=== PATIENT | female | born 1985 | race Caucasian/White ===

== ENCOUNTER 2022-05-21 12:04 | Emergency (ER) | payer MEDICAID, SELFPAY ==
[2022-05-21 12:04] VITALS: BP 126/96; PULSE 94; RESP 18; TEMP 36.6; O2SAT 97; BMI 26.4
[2022-05-21 12:49] LABS: Mucous, Urine 0 SEEN /hpf (<or=2+); Red Blood Cells-Urine 0 SEEN /hpf (0-5); Squamous Epithelial Cells - UA 0 SEEN /hpf (5-10)
[2022-05-21 12:59] LABS: Color, Urine Yellow (Yellow); Glucose, Dipstick Normal (Normal); Ketone-Dipstick Negative (Negative); Leukocyte Esterase-Dipstick Negative /ul (Negative); Nitrite-Dipstick Negative (Negative); Occult Blood-Urine 250 /ul (Negative); Protein-Dipstick 100 mg/dl (Negative); Specific Gravity, Urine 1.015 (1.002-1.030); Urine Bilirubin Dipstick Negative (Negative); Urine Clarity Clear (Clear); Urine Urobilinogen Normal (Normal)
[2022-05-21 13:09] LABS: Basophil# 0.03 X10^3/uL; Basophil% 0.3 % (0-1); Eosinophil# 0.09 X10^3/uL; Hematocrit 43.3 % (37-47); Hemoglobin 15.1 g/dL (12.0-15.0); Lymphocyte % 28.9 % (19-41); Mean Corp Hgb Conc 34.9 g/dL (32-36); Mean Corpuscular Hgb 31.4 pg (27.0-32.0); Mean Platelet Vol. 10.4 fl (6.2-12.0); Monocyte# 0.55 X10^3/uL; Monocyte% 5.9 % (0-10); NRBC Flagged by Analyzer 0 % (0-5); Neutrophil # 5.95 X10^3/uL (2.7-7.7); Neutrophil % 63.7 % (47-70); Platelet Count 238 K/mm3 (150-450); RBC Distribution Width CV 12.4 % (11.6-14.6); Red Blood Count 4.81 M/mm3 (4.2-5.4); White Blood Count 9.3 K/mm3 (4.4-11.0)
--- NOTE | 2022-05-21 13:10 | CT_ITS ---
STUDY: CT ABDOMEN AND PELVIS WITHOUT CONTRAST REASON FOR EXAM: Female, 36 years old. Right-sided flank pain. History of kidney stones. RADIATION DOSAGE (If Supplied By Facility): CTDIvol = ( 6.99 ) mGy, DLP = ( 337.29 ) mGycm TECHNIQUE: Transaxial images were obtained from the dome of the diaphragm to the symphysis pubis without oral contrast, and without intravenous contrast. Sagittal and coronal images were reconstructed. Individualized dose optimization techniques were used for this CT. COMPARISON: None. FINDINGS: The visualized lung bases are unremarkable. The visualized portions of the heart are within normal limits. Normal liver. There are surgical clips in the gallbladder fossa consistent with a prior cholecystectomy. Normal spleen. Normal pancreas. Normal bilateral adrenal glands. Punctate calculus in the lower pole calyx of the right kidney. Normal left kidney. There is a small hiatal hernia. Normal small intestine. Normal colon. There are surgical clips in the region of the appendix consistent with a prior appendectomy. Normal abdominal aorta. Normal inferior vena cava. There is borderline retroperitoneal lymphadenopathy with enlarged nodes no greater than 10mm in the short axis diameter. Normal urinary bladder. There is a dominant follicle in the right ovary measuring 1.7 cm. Normal abdominal wall. Normal osseous structures. CT/Abdomen/Pelvis without Cont IMPRESSION: Status post appendectomy and cholecystectomy. Tiny calculus in the lower pole calyx of the right kidney. Electronically Signed: Bridger Cueto MD at 14:02 EDT ,
--- NOTE | 2022-05-21 13:11 | EDS_ITS ---
HPI HPI - Female History of Present Illness Chief Complaint: Flank Pain Narrative Narrative: 36-year-old female presenting with left flank pain, nausea, dysuria. She has a history of kidney stones. She states she sees a specialist in [place]. She is to go to every 6 months. She is visiting family here in [place] and was brought to the ED here for evaluation. She states it feels like a kidney stone. It radiates around to the left inguinal area. No diarrhea constipation. No vaginal complaints. No fever or chills. PFSH PFSH Home Medications NK 05/21/22 [History Last Taken Unknown] Allergy/AdvReac Type Severity Reaction Status Date / Time ketorolac [From Toradol] Allergy Hives Verified 05/21/22 12:06 NSAIDS (Non-Steroidal Allergy Hives Verified 05/21/22 12:06 Anti-Inflamma Social History Smoking Status: Current some day smoker tobacco type: cigarettes ROS ROS ED Constitutional Constitutional ED: Denies chills, fever(s) or sweats Eyes Eyes: Denies blurry vision or change in vision ENT ENT ED: Denies ear pain or sore throat Cardiovascular Cardiovascular: Denies chest pain, palpitations or racing heartbeat Respiratory/Chest Respiratory/Chest: Denies cough, dyspnea or sputum Gastrointestinal Gastrointestinal: Reports abdominal pain and nausea; Denies constipation, diarrhea or vomiting Genitourinary Genitourinary ED: Reports dysuria; Denies urinary frequency Musculoskeletal Musculoskeletal: Denies arthralgias, myalgias or neck pain Integumentary Denies abscess, Abrasions or rash Neurologic Neurologic: Denies headache(s), paresthesias or weakness Psychiatric Psychiatric: Denies anxiety, depression, suicidal ideation or suicidal thoughts Endocrine Endocrinology: Denies polydipsia or polyuria EXAM Physical Exam Const Vital Signs: 05/21/22 12:04 05/21/22 12:55 Temperature 97.9 F Temperature Source Temporal Pulse Rate 94 Respiratory Rate 18 Respiratory Effort Normal Non-Labored Respiratory Pattern Normal Blood Pressure 126/96 H Blood Pressure Mean 106 Pulse Ox 97 Oxygen Delivery Method Room Air Positive well nourished General Appearance ED: NAD HEENT Reports moist mucous membranes Eyes PERRL and EOMs intact bilaterally General Eye ED: Negative for pale conjunctiva Resp normal respiratory effort and clear to auscultation bilaterally Cardio regular rate and regular rhythm GI soft to palpation GI Narrative: Mild tenderness in the left lower quadrant Palpation: Negative for guarding or rigid Back/Spine General Back: CVA tenderness left Neuro oriented x3 and CN's II-XII intact bilaterally Sensorium / Orientation: alert Psych mental status grossly normal Skin no rashes or lesions noted MDM MDM MDM Narrative Medical decision making narrative: Patient medicated with morphine and Zofran as she has allergy to Toradol. Urinalysis shows occult blood. CBC shows no leukocytosis and her hemoglobin hematocrit are normal. CBC and BMP are unremarkable. CT of the abdomen pelvis without contrast was obtained to rule out kidney stone the radiologist interprets this is a tiny calculus within the right kidney. There is no pain in the side. I suspect she likely passed a kidney stone given her history. Patient counseled on findings. I do not believe the patient needs narcotics for home. I instructed her to take Tylenol due to her allergy to Toradol and ibuprofen. Impression: 1. Hematuria 2. Left flank pain 3. Likely passed kidney Lab Data Attestation: I reviewed the patient's lab results. Labs: Laboratory Results - last 24 hr 05/21/22 05/21/22 05/21/22 12:45 12:53 12:53 WBC 9.3 RBC 4.81 Hgb 15.1 H Hct 43.3 MCV 90.0 MCH 31.4 MCHC 34.9 RDW Std Deviation 41.0 RDW Coeff of Carla 12.4 Plt Count 238 MPV 10.4 Immature Gran % (Auto) 0.200 Neut % (Auto) 63.7 Lymph % (Auto) 28.9 [place] % (Auto) 5.9 Eos % (Auto) 1.0 Baso % (Auto) 0.3 Absolute Neuts (auto) 6.0 Absolute Lymphs (auto) 2.70 Nucleated RBC % 0 Sodium 140 Potassium 4.1 Chloride 111 H Carbon Dioxide 25.0 Anion Gap 4 L BUN 12 Creatinine 0.70 Estim Creat Clear Calc 82.23 Est GFR (MDRD) Af Amer 119 Est GFR (MDRD) Non-Af 99 BUN/Creatinine Ratio 17.1 Glucose 90 Calcium 9.1 Urine Color Yellow Urine Clarity Clear Urine pH 6.0 Ur Specific [place] 1.015 Urine Protein 100 H Urine Glucose (UA) Normal Urine Ketones Negative Urine Occult Blood 250 H Urine Nitrite Negative Urine Bilirubin Negative Urine Urobilinogen Normal Ur Leukocyte Esterase Negative Urine RBC 0 SEEN Urine WBC 5-10 SEEN Ur Squamous Epith Cells 0 SEEN Urine Bacteria 1+ Urine Mucus 0 SEEN Urine Test Negative Radiography Diagnostic Testing: Clinical Impression(s) from Imaging Studies Abdomen/Pelvis CT 05/21/22 13:10 IMPRESSION: Status post appendectomy and cholecystectomy. Tiny calculus in the lower pole calyx of the right kidney. Electronically Signed: Bridger Cueto MD at 14:02 EDT , Discharge Plan Triage Chief Complaint: Flank Pain ED Provider: Hari Marti Dx/Rx/DC Orders Prescriptions: No Action NK Primary Care Provider: SELVIN LEAL Referrals: NOT,DEFINED [Non-Staff] -
[2022-05-21 13:15] LABS: White Blood Cells 5-10 SEEN /hpf (0-5)
[2022-05-21 13:16] LABS: Bacteria 1+ /hpf (None Seen); Internal QC Validated? YES +Cl - CLEAR BKGD; Pregnancy, Urine Negative Negative
[2022-05-21] MEDS: Ondansetron 4 MG/2 ML Vial IV (13:16)
[2022-05-21] MEDS: Morphine 4 MG/ML Syringe IV (13:16)
[2022-05-21 13:22] LABS: Anion Gap 4 (5-15); BUN 12 mg/dL (7-18); BUN/Creat Ratio 17.1 RATIO (10-20); Calcium,Total 9.1 mg/dL (8.5-10.1); Chloride 111 mmol/L (98-107); EST Glomerular Filtration Rate 99 mL/min (>60); Est Glom Filt Rate - Afr Amer 119 mL/min (>60); Estimated Creatinine Clearance 82.23 ml/min; Glucose 90 mg/dL (74-106); Potassium 4.1 mmol/L (3.5-5.1); Sodium Level 140 mmol/L (136-145)
== END 2022-05-21 15:10 | disposition home or self-care (01) ==
PROVIDERS: Emergency Provider Student in an Organized Health Care Education/Training Program; Visit Provider Student in an Organized Health Care Education/Training Program
DX: N20.0 Calculus of kidney (principal); R10.9 Unspecified abdominal pain; F17.210 Nicotine dependence, cigarettes, uncomplicated; R11.0 Nausea; R31.9 Hematuria, unspecified; R30.0 Dysuria; Z90.49 Acquired absence of other specified parts of digestive tract
CPT/HCPCS: 74176; 80048; 81001; 81025; 85025; 99283; A4216; J2405

== ENCOUNTER 2022-09-05 08:39 | Emergency (ER) | payer MEDICAID, SELFPAY ==
[2022-09-05 08:40] VITALS: BP 158/109; PULSE 93; RESP 15; TEMP 36.1; O2SAT 97; BMI 24.7
[2022-09-05 08:52] VITALS: BP 158/109; PULSE 93; RESP 16; TEMP 36.1; O2SAT 97
[2022-09-05 09:03] LABS: Mucous, Urine 0 SEEN /hpf (<or=2+); White Blood Cells 0 SEEN /hpf (0-5)
--- NOTE | 2022-09-05 09:05 | ED.VIS.GI ---
HPI HPI - GI History of Present Illness Chief Complaint: Flank Pain Narrative Narrative: 37-year-old female presenting with left flank pain, left lower quadrant pain, nausea. She has history of UTI, pyelonephritis, diverticulitis, kidney stones. She states the onset of her pain was Thursday. She describes it as aching. She describes it is progressively getting worse. She states that she does not have any urinary symptoms but typically if she had a UTI she would not get dysuria. She states she does have hot and cold flashes but has not had a fever. She has not had diarrhea or constipation. No vaginal complaints. PFSH PFS Medical History FH: cholecystectomy Kidney stone Home Medications ondansetron 4 mg disintegrating tablet 4 mg PO Q8H PRN nausea and vomiting #10 tabs 05/21/22 [Rx Last Taken Unknown] esomeprazole magnesium 40 mg capsule,delayed release (Nexium) 40 mg PO DAILY 09/05/22 [History Last Taken Unknown] ondansetron 4 mg disintegrating tablet 4 mg PO Q8H PRN nausea and vomiting #10 tabs 09/05/22 [Rx Last Taken Unknown] sumatriptan succinate 50 mg tablet 50 mg PO PRN PRN Headache 09/05/22 [History Last Taken Unknown] Allergy/AdvReac Type Severity Reaction Status Date / Time ketorolac [From Toradol] Allergy Hives Verified 09/05/22 08:42 NSAIDS (Non-Steroidal Allergy Hives Verified 09/05/22 08:42 Anti-Inflamma Surgical History Hx of appendectomy S/P partial hysterectomy Social History Smoking Status: Current some day smoker tobacco type: cigarettes ROS ROS ED Constitutional Constitutional ED: Reports chills and sweats ENT ENT ED: Denies rhinorrhea or sore throat Cardiovascular Cardiovascular: Denies chest pain or palpitations Respiratory/Chest Respiratory/Chest: Denies cough or dyspnea Gastrointestinal Gastrointestinal: Reports abdominal pain and nausea; Denies constipation, diarrhea or vomiting Genitourinary Genitourinary ED: Denies dysuria, hematuria or urinary frequency Musculoskeletal Musculoskeletal: Reports back pain; Denies arthralgias Integumentary Denies abscess or Abrasions Neurologic Neurologic: Denies headache(s) or paresthesias Psychiatric Psychiatric: Denies anxiety or depression Endocrine Endocrinology: Denies polydipsia or polyphagia EXAM Physical Exam Const Vital Signs: 09/05/22 08:40 09/05/22 08:49 09/05/22 08:52 Temperature 97 F L 97.0 F L Temperature Source Temporal Temporal Pulse Rate 93 93 Respiratory Rate 15 16 Respiratory Pattern Normal Blood Pressure 158/109 H 158/109 H Blood Pressure Mean 125 125 Pulse Ox 97 97 Oxygen Delivery Method Room Air Room Air Positive well nourished General Appearance ED: NAD; Negative for pallor HEENT Reports moist mucous membranes Eyes PERRL and EOMs intact bilaterally Neck no lymphadenopathy Resp normal respiratory effort and clear to auscultation bilaterally Auscultation: Negative for rales, rhonchi or wheezes Cardio regular rate and regular rhythm Back/Spine General Back: CVA tenderness left Neuro CN's II-XII intact bilaterally Sensorium / Orientation: alert Psych mental status grossly normal and thought process normal Skin no wounds General Skin Exam: Negative for jaundice or pallor MDM MDM MDM Narrative Medical decision making narrative: 37-year-old female presenting with left-sided abdominal pain and left flank pain as well as nausea. Onset was Thursday and is progressively worsening. Differential currently includes diverticulitis, kidney stone, pyelonephritis, UTI, ovarian torsion. She does have CVA tenderness but is also significantly tender in the left lower quadrant. We will obtain a urinalysis to test for UTI, occult blood. CBC will be obtained to check white blood cell count, differential. BMP for renal function and electrolytes. Patient was medicated with morphine 4 mg IV, Zofran 4 mg IV, 1 L of normal saline. Patient CBC is fairly unremarkable. White blood cell count is 10.3. Hemoglobin 15.2. Hematocrit 46.1. Platelets 253. Renal function and electrolytes within normal limits with exception of a potassium of 3.4. Glucose is normal. Urinalysis shows 250 occult blood with 25-50 red blood cells. There is 0-5 squamous epithelial cells with 1+ bacteria. Likely this is contamination. Patient is not having any urinary complaints. Urine hCG negative. CT of the abdomen pelvis without contrast was obtained to rule out kidney stone and there does not appear to be any obstructive uropathy. Kidneys look normal. Ureters are also normal. Patient counseled on all findings. Patient will be given Zofran for home. She can use Tylenol as needed for pain. I did give her follow-up with urology as this is her second visit with hematuria without findings. Patient amenable to this. She is discharged home in stable condition. Impression: 1. Left flank pain 2. Hematuria 3. Nausea Lab Data Attestation: I reviewed the patient's lab results. Labs: Laboratory Results - last 24 hr 09/05/22 09/05/22 09/05/22 08:55 09:15 09:15 WBC 10.3 RBC 5.00 Hgb 15.2 H Hct 46.1 MCV 92.2 MCH 30.4 MCHC 33.0 RDW Std Deviation 42.4 RDW Coeff of Carla 12.5 Plt Count 253 MPV 11.1 Immature Gran % (Auto) 0.300 Neut % (Auto) 58.6 Lymph % (Auto) 31.4 [place] % (Auto) 7.8 Eos % (Auto) 1.6 Baso % (Auto) 0.3 Absolute Neuts (auto) 6.1 Absolute Lymphs (auto) 3.24 Nucleated RBC % 0 Sodium 141 Potassium 3.4 L Chloride 106 Carbon Dioxide 25.0 Anion Gap 10 BUN 11 Creatinine 0.82 Estim Creat Clear Calc 72.85 Est GFR (MDRD) Af Amer 100 Est GFR (MDRD) Non-Af 83 BUN/Creatinine Ratio 13.5 Glucose 87 Calcium 8.8 Urine Color Yellow Urine Clarity Sl. Cloudy Urine pH 6.0 Ur Specific [place] 1.015 Urine Protein 100 H Urine Glucose (UA) Normal Urine Ketones Negative Urine Occult Blood 250 H Urine Nitrite Negative Urine Bilirubin Negative Urine Urobilinogen Normal Ur Leukocyte Esterase Negative Urine RBC 25-50 SEEN Urine WBC 0 SEEN Ur Squamous Epith Cells 0-5 SEEN Urine Bacteria 1+ Urine Mucus 0 SEEN Urine Test Negative Radiography Diagnostic Testing: Clinical Impression(s) from Imaging Studies Abdomen/Pelvis CT 09/05/22 09:26 IMPRESSION: No acute abnormality is seen. No evidence of a ureteral obstruction. Electronically Signed: Bridger Cueto MD at 10:34 EST , Discharge Plan Triage Chief Complaint: Flank Pain ED Provider: Hari Marti Dx/Rx/DC Orders Instructions: ED Flank Pain, Uncertain Cause, ED Hematuria Prescriptions: New ondansetron 4 mg tablet,disintegrating 4 mg PO Q8H PRN (Reason: nausea and vomiting) Qty: 10 0RF No Action ondansetron 4 mg tablet,disintegrating 4 mg PO Q8H PRN (Reason: nausea and vomiting) Qty: 10 0RF sumatriptan succinate 50 mg tablet 50 mg PO PRN PRN (Reason: Headache) Label Comments: take 1 tablet by mouth twice a day if needed (DOSING SHOULD BE AT... (REFER TO PRESCRIPTION NOTES). esomeprazole magnesium [Nexium] 40 mg Capsule,Delayed Release(Dr/Ec) 40 mg PO DAILY Primary Care Provider: Care Physician,No Primary Referrals: SELVIN LEAL [Other] Alba Rao MD [Med Staff - Active Staff] - 3-5 Days Disposition Disposition: Home, Self Care
[2022-09-05] MEDS: Ondansetron 4 MG/2 ML Vial IV (09:11)
[2022-09-05] MEDS: 0.9% Normal Saline 1,000 ML 1000 ML IV (09:11)
[2022-09-05] MEDS: Morphine 4 MG/ML Syringe IV ×2 (09:11→09:48)
[2022-09-05 09:17] LABS: Color, Urine Yellow (Yellow); Glucose, Dipstick Normal (Normal); Ketone-Dipstick Negative (Negative); Leukocyte Esterase-Dipstick Negative /ul (Negative); Nitrite-Dipstick Negative (Negative); Occult Blood-Urine 250 /ul (Negative); Protein-Dipstick 100 mg/dl (Negative); Specific Gravity, Urine 1.015 (1.002-1.030); Urine Bilirubin Dipstick Negative (Negative); Urine Clarity Sl. Cloudy (Clear); Urine Urobilinogen Normal (Normal)
[2022-09-05 09:23] LABS: Bacteria 1+ /hpf (None Seen); Internal QC Validated? YES +Cl - CLEAR BKGD; Pregnancy, Urine Negative Negative; Red Blood Cells-Urine 25-50 SEEN /hpf (0-5); Squamous Epithelial Cells - UA 0-5 SEEN /hpf (5-10)
[2022-09-05 09:24] LABS: Absolute Lymphocyte Count 3.24 X10^3/uL (0.83-4.51); Absolute Neutrophil Count 6.1 X10^3/uL (2.0-7.7); Basophil# 0.03 X10^3/uL; Basophil% 0.3 % (0-1); Eosinophil# 0.16 X10^3/uL; Eosinophils% 1.6 % (0-5); Hematocrit 46.1 % (37-47); Hemoglobin 15.2 g/dL (12.0-15.0); Lymphocyte # 3.24 X10^3/ul (0.83-4.51); Lymphocyte % 31.4 % (19-41); Mean Corpuscular Hgb 30.4 pg (27.0-32.0); Mean Corpuscular Volume 92.2 fL (81-99); Mean Platelet Vol. 11.1 fl (6.2-12.0); Monocyte# 0.81 X10^3/uL; Monocyte% 7.8 % (0-10); NRBC Flagged by Analyzer 0 % (0-5); Neutrophil # 6.05 X10^3/uL (2.7-7.7); Neutrophil % 58.6 % (47-70); Platelet Count 253 K/mm3 (150-450); RBC Distribution Width CV 12.5 % (11.6-14.6); RBC Distribution Width SD 42.4 fl (35.1-43.9); White Blood Count 10.3 K/mm3 (4.4-11.0)
--- NOTE | 2022-09-05 09:26 | CT_ITS ---
STUDY: CT ABDOMEN AND PELVIS WITHOUT CONTRAST REASON FOR EXAM: Female, 37 years old. 4 day history of left flank pain. History of stones. RADIATION DOSAGE (If Supplied By Facility): CTDIvol = ( 6.22 ) mGy, DLP = ( 299.79 ) mGycm TECHNIQUE: Transaxial images were obtained from the dome of the diaphragm to the symphysis pubis without oral contrast, and without intravenous contrast. Sagittal and coronal images were reconstructed. Individualized dose optimization techniques were used for this CT. COMPARISON: Comparison is made with prior study 05/21/2022. FINDINGS: The visualized lung bases are unremarkable. The visualized portions of the heart are within normal limits. Normal liver. There are surgical clips in the gallbladder fossa consistent with a prior cholecystectomy. Normal spleen. Normal pancreas. Normal bilateral adrenal glands. Normal right kidney. Normal left kidney. There is a small hiatal hernia. Normal small intestine. There are scattered colonic diverticula consistent with diverticulosis. There are surgical clips in the region of the appendix consistent with a prior appendectomy. There is scattered atherosclerotic calcification of the abdominal aorta, without a demonstrated aneurysm. Normal inferior vena cava. There is borderline retroperitoneal lymphadenopathy with enlarged nodes no greater than 10mm in the short axis diameter. Normal urinary bladder. There is absence of the uterus consistent with a prior hysterectomy. Normal abdominal wall. Normal osseous structures. CT/Abdomen/Pelvis without Cont IMPRESSION: No acute abnormality is seen. No evidence of a ureteral obstruction. Electronically Signed: Bridger Cueto MD at 10:34 [facility] ,
[2022-09-05 09:37] LABS: Anion Gap 10 (5-15); BUN 11 mg/dL (7-18); BUN/Creat Ratio 13.5 RATIO (10-20); Calcium,Total 8.8 mg/dL (8.5-10.1); Chloride 106 mmol/L (98-107); Creatinine, Serum 0.82 mg/dL (0.55-1.02); EST Glomerular Filtration Rate 83 mL/min (>60); Est Glom Filt Rate - Afr Amer 100 mL/min (>60); Estimated Creatinine Clearance 72.85 ml/min; Glucose 87 mg/dL (74-106); Potassium 3.4 mmol/L (3.5-5.1); Sodium Level 141 mmol/L (136-145)
--- NOTE | 2022-09-05 10:55 | CM.ED ---
Social Work Consult: PCP Referral source: Self Referral This high school social studies tutor met with patient in room. Introduced self and high school social studies tutor role. Patient agreeable to speak with this high school social studies tutor. This high school social studies tutor broached topic of no PCP for patient. Patient confirms to not have a PCP as patient pervious PCP retired 2 months ago and I have not had time to set another one up, per the patient. Patient agreeable to this high school social studies tutor providing patient with list of in-network PCP's that are local to patient geographical region, this high school social studies tutor provided list to patient. Patient reports to have all other needs met in the community including housing, transportation, a financial stability. Patient reports to have transportation home for ED today. No further needs requested or indicated. Mis HOBSON, DINAH-S
[2022-09-05 11:32] VITALS: BP 146/91; PULSE 59; RESP 17; TEMP 35.8; O2SAT 98
== END 2022-09-05 11:34 | disposition home or self-care (01) ==
PROVIDERS: Emergency Provider Student in an Organized Health Care Education/Training Program; Visit Provider Student in an Organized Health Care Education/Training Program
DX: R10.814 Left lower quadrant abdominal tenderness (principal); R31.9 Hematuria, unspecified; R11.0 Nausea; F17.210 Nicotine dependence, cigarettes, uncomplicated; Z87.442 Personal history of urinary calculi; Z87.440 Personal history of urinary (tract) infections
CPT/HCPCS: 74176; 80048; 81001; 81025; 85025; 99284; J2405